=== PATIENT | female | born 1980 | race Caucasian/White ===

== ENCOUNTER 2023-12-19 08:18 | Day surgery (SDC) | payer OTHER, SELFPAY ==
[2023-12-19 09:08] VITALS: BP 124/84; PULSE 79; RESP 16; TEMP 36.3; O2SAT 100
[2023-12-19] MEDS: LACTATED RINGERS 1,000 ML 42 ML IV (09:12)
--- NOTE | 2023-12-19 09:19 | P.HP_ITS ---
History of Present Illness History of Present Illness Date Patient Seen: 12/19/23 Time Patient Seen: 09:19 Chief complaint: Colonoscopy Narrative: 43-year-old here for colon cancer screening. [facility] Surgical History S/P lumpectomy, right breast H/O oophorectomy Social History Smoking Status: Never smoker alcohol intake: current Meds Home Medications and Allergies Home Medications Medication Instructions Recorded Confirmed Type No Known Home Medications 12/19/23 12/19/23 History Allergies Allergy/AdvReac Type Severity Reaction Status Date / Time codeine Allergy Severe Vomiting Verified 12/19/23 09:04 Review of Systems Review of Systems ROS: Yes All systems reviewed with the patient and are negative except as otherwise documented Exam Vital Signs (past 8 hours): - 12/19/23 09:08 Temperature 97.4 F L Pulse Rate 79 Respiratory Rate 16 Blood Pressure 124/84 Pulse Oximetry 100 Oxygen Delivery Method Room Air Oxygen Delivery Method Room Air Const General: cooperative HENMT Head: normal to inspection Eyes General: appearance normal, both eyes and all related structures Neck Neck: normal visual inspection Chest Chest: normal inspection of the chest Resp Effort & Inspection: normal respiratory effort Cardio Rate: regular rate GI Inspection: normal to inspection Skin General: no rashes or lesions noted Neuro General: patient alert and patient awake Extrem General: normal to inspection and no pedal edema Psych Appearance: grossly normal Assessment & Plan Assessment & Plan narrative: 43-year-old indicated for colon cancer screening. No family history of colon cancer. Colonoscopy is pursued today. Time-Based Coding :: [TOTAL MINUTES] spent with patient and on the chart (including review of chart, obtaining history, exam, reviewing outside data, placing orders, documenting exam and treatment plan, and counseling patient) on [DATE].
--- NOTE | 2023-12-19 09:20 | PM.PREOP ---
Pre-operative Note Interval Note History & Physical reviewed/Exam performed by Physician: Yes Changes to H&P: No ASA Class (for procedural sedation): I
--- NOTE | 2023-12-19 10:34 | P.OP.COLON_ITS ---
Operative Date/Time/Diagnoses Date of procedure: 12/19/23 Time of procedure: 10:34 Pre-op diagnosis: Colon cancer screening Post-op diagnosis: same Procedure & Clinicians Study performed: Colonoscopy Same procedure as scheduled: Yes Indications: Colon cancer screening Surgeon: Maurilio Palacios Procedure Notes SCOAP/Timeout: Done Procedure in detail: After the risks and benefits were explained, written and verbal informed consent was obtained. The patient was brought into the procedure room and placed into the left lateral decubitus position. Please see anesthesia note for sedation details. Digital rectal examination was accomplished. The scope was introduced into the patient and advanced under direct visualization to the cecum as identified by the appendiceal orifice and ileocecal valve. The scope was slowly withdrawn to carefully examine the mucosa for any defects or lesions. Comprehensive imaging was accomplished throughout the rectum including the dentate line. The colon was decompressed, the scope was then removed from the patient who tolerated the procedure well. Pediatric colonoscope Bowel prep adequate Scope withdrawal time: 14 minutes Sedation minutes: 20 Complications: none Impression: No significant polyps mass lesions or inflammatory features identified throughou t. The terminal ileum had some mucus within it but there were no underlying mucosal abnormalities. The villi appeared healthy and normal. The cecum was interesting in that it appeared as though there was something outside exerting pressure filling in the cecal lumen intermittently. I took multiple pictures of this for the electronic record. Endoscopic diagnosis 1. 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 Otherwise visually normal colonoscopy Post-procedure Plan for aftercare: 1. Repeat colon cancer screening 10 years. 2. Consider abdominal ultrasound to evaluate for right-sided ovarian cyst Disposition: PACU
[2023-12-19 10:37] VITALS: BP 121/79; PULSE 85; RESP 12; TEMP 36.6; O2SAT 97
[2023-12-19 10:42] VITALS: BP 110/73; PULSE 83; RESP 12; O2SAT 99
[2023-12-19 10:48] VITALS: BP 116/82; PULSE 80; RESP 12; O2SAT 98
[2023-12-19 10:53] VITALS: BP 130/82; PULSE 75; RESP 11; TEMP 37; O2SAT 99
== END 2023-12-19 11:06 | disposition home or self-care (01) ==
PROVIDERS: PCP Nurse Practitioner Family; Referring Provider Internal Medicine Gastroenterology; Visit Provider Internal Medicine Gastroenterology
PROC: 0DJD8ZZ Inspection of Lower Intestinal Tract, Via Natural or Artificial Opening Endoscopic (ICD-10-PCS; CPT 45378; principal; 2023-12-19 10:00)
DX: Z12.11 Encounter for screening for malignant neoplasm of colon (principal)
CPT/HCPCS: 45378; 81025; J2704